=== PATIENT | male | born 1955 | race Caucasian/White ===

== ENCOUNTER → 2016-12-15 | Outpatient (CLI) | payer OTHER | END | disposition home or self-care (01) | LOC: LAB.O 10:23 | PROVIDERS: ATTEND Psychiatry & Neurology Neurology | DX: E11.9 Type 2 diabetes mellitus without complications (principal); M54.16 Radiculopathy, lumbar region; M32.10 Systemic lupus erythematosus, organ or system involvement unspecified; K50.90 Crohn's disease, unspecified, without complications; M15.0 Primary generalized (osteo)arthritis; F01.50 Vascular dementia, unspecified severity, without behavioral disturbance, psychotic disturbance, mood disturbance, and anxiety; G30.9 Alzheimer's disease, unspecified; F90.9 Attention-deficit hyperactivity disorder, unspecified type; M33.90 Dermatopolymyositis, unspecified, organ involvement unspecified; F81.9 Developmental disorder of scholastic skills, unspecified; R53.83 Other fatigue; R50.9 Fever, unspecified; M79.A9 Nontraumatic compartment syndrome of other sites; M54.81 Occipital neuralgia; M81.8 Other osteoporosis without current pathological fracture; M33.22 Polymyositis with myopathy; G61.81 Chronic inflammatory demyelinating polyneuritis; I73.00 Raynaud's syndrome without gangrene; M06.9 Rheumatoid arthritis, unspecified; D86.9 Sarcoidosis, unspecified; M31.6 Other giant cell arteritis; G45.9 Transient cerebral ischemic attack, unspecified ==

== ENCOUNTER 2017-03-22 08:51 | Emergency (ER) | payer OTHER ==
[2017-03-22] MEDS ORDERED: HYDROmorphone HCL INJ 2 MG/ML VIAL IM ONE ×2 (09:00→09:59)
--- NOTE | 2017-03-22 09:29 | RAD ---
EXAM DESCRIPTION: Chest,2 Views CLINICAL HISTORY: injury, pain COMPARISON: October 15, 2009 FINDINGS: Two-view chest x-ray shows cardiomediastinal silhouette and pulmonary vasculature to be within normal limits. Lateral projection is suboptimal secondary to regions inability to elevate arm. The lungs are normally aerated and clear. Probable nipple shadow in the right lower chest. Costophrenic angles are sharp. Remote appearing left-sided rib fractures are again seen. Disc degenerative changes of the spine are noted. IMPRESSION: No radiographic evidence of acute cardiopulmonary disease. Electronically signed by: Emory Howe MD 03/22/2017 9:28 AM CDT
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
--- NOTE | 2017-03-22 10:15 | RAD ---
EXAM DESCRIPTION: Radiographs of the right Shoulder: CLINICAL HISTORY: injury, pain COMPARISON: None TECHNIQUE: AP external rotation images. Lateral "Y" image. FINDINGS: No fracture right shoulder. Normal bone density. AC joint separation with distal clavicle 1.4 cm from the acromion. Glenohumeral joint unremarkable. No abnormal radiodense objects in the soft tissues or joint spaces. Adjacent right lung is unremarkable. IMPRESSION: Right AC joint separation with no evidence of fracture. Electronically signed by: William Clarke MD 03/22/2017 10:14 AM CDT
[2017-03-22 10:44] VITALS: TEMP 97.5
[2017-03-22 10:45] VITALS: BP 142/90; O2SAT 98
== END 2017-03-22 10:25 | disposition home or self-care (01) ==
LOC: ER 08:51
DX: S43.101A Unspecified dislocation of right acromioclavicular joint, initial encounter (principal); V13.4XXA Pedal cycle driver injured in collision with car, pick-up truck or van in traffic accident, initial encounter; Y92.410 Unspecified street and highway as the place of occurrence of the external cause
CPT/HCPCS: 71020; 73030; J1170

== ENCOUNTER → 2017-06-17 | Outpatient (CLI) | payer OTHER ==
--- NOTE | 2017-06-18 11:10 | MRI ---
MRI left shoulder without contrast INDICATION: Shoulder pain NOS TECHNIQUE: Noncontrast MR imaging left shoulder standard protocol FINDINGS: There is mild AC joint osteoarthrosis. There is tendinopathy and chronic low-grade interstitial partial tearing of the distal supraspinatus and infraspinatus. There is a diffuse chronic appearing glenoid labral tear nearly circumferential with para labral cysts along the inferior labrum extending into the axillary recess. No denervation muscle edema or atrophy noted. Maximal diameter of the para labral cyst is approximately 22 mm. This extends into the latissimus and teres major region at least 6 cm in length. Minimal grade 1 marbling of the rotator cuff muscle bellies symmetric. Multiple small subchondral cysts are noted in the posterior glenoid as well with minimal background glenohumeral osteoarthrosis. No detachment of the bicep labral anchor. There is tendinopathy and chronic low-grade interstitial partial tear subscapularis. No bicep rupture or dislocation. Slight posterior decentering of the humerus relative to the glenoid suggesting chronic mild posterior instability Remote healed mid to distal left clavicle fracture IMPRESSION: Nearly circumferential chronic glenoid labral tear left shoulder with large para labral cyst extending into the latissimus and teres major region Mild posterior decentering of the humerus suggesting chronic posterior instability Chronic tendinopathy and low-grade partial tears throughout the rotator cuff Remote healed distal clavicle fracture into the mid clavicle Mild glenohumeral osteoarthrosis Mild AC joint osteoarthrosis Mild subacromial and subdeltoid bursal edema Electronically signed by: Fredy Gomez MD 06/18/2017 11:09 AM GUN EXAMINER
== END | disposition home or self-care (01) ==
LOC: MRI 11:08
PROVIDERS: ATTEND Nurse Practitioner Acute Care
DX: M25.511 Pain in right shoulder (principal); M19.012 Primary osteoarthritis, left shoulder

== ENCOUNTER 2018-03-29 21:25 | Emergency (ER) | payer OTHER ==
[2018-03-29] MEDS ORDERED: SODIUM CHLORIDE 0.9% (FLUSH) 10 ML SYG IV PRN (21:33)
[2018-03-29] MEDS ORDERED: fentaNYL CITRATE INJ 50 MCG/ML AMP IV ONE (22:00)
--- NOTE | 2018-03-29 23:01 | US ---
EXAM DESCRIPTION: Abdomen,Complete CLINICAL HISTORY: 62 years Male, moderate to sever abd pain COMPARISON: None. TECHNIQUE: Sonographic imaging of the abdomen was performed. FINDINGS: Liver measures 17.4 cm longitudinally and appears homogenous in echogenicity. No obvious hepatic mass. Main portal vein is borderline prominent. Gallbladder appears unremarkable. No evidence of gallstones. No evidence of gallbladder wall thickening. Common bile duct appears normal measuring 1.3 mm in width. Pancreas is not well-visualized. Right kidney measures 10.5 cm x 4.3 cm x 5.4 cm and left kidney measures 9.3 cm x 7.6 cm x 6.2 cm. No evidence of hydronephrosis. No obvious renal stones. Spleen measures 9.1 cm longitudinally and appears unremarkable. Aorta appears normal in size. IMPRESSION: No acute findings. Electronically signed by: Dwayne Sandoval MD 03/29/2018 11:00 PM CDT
--- NOTE | 2018-03-29 23:16 | CT ---
PROCEDURE: Abdomen/Pelvis w/Contrast HISTORY: severe abd pain Indication: Same as above Comparison: None . Technique: CT of the abdomen and pelvis was done with intravenous contrast. Images were obtained from the lung base to the level of the pubic symphysis in axial plane, followed by orthogonal sagittal and coronal reconstruction. Oral contrast was not given for the study. The patient was injected with radiographic contrast intravenously, without any documented immediate adverse reactions. This exam was performed according to our departmental dose-optimization program, which includes automated exposure control, adjustment of the mA and/or KV according to the patient's size and/or use of iterative reconstruction technique. FINDINGS: Images through the lung bases do not show any focal infiltrates or pleural effusions. The liver, gallbladder, pancreas, spleen and the bilateral adrenal glands appear unremarkable. The bilateral kidneys enhance with contrast in a normal fashion. The urinary bladder is unremarkable . The bilateral ureters and the bilateral periureteral soft tissues and fat planes are unremarkable. The small bowel appears unremarkable, without any evidence of small bowel obstruction or bowel wall thickening. There is no CT evidence of acute appendicitis, pericecal inflammatory change or ileocecal mesenteric adenitis. The ileocecal junction appears unremarkable. There is no CT evidence of acute colonic diverticulitis or colitis or large bowel obstruction. There is large bowel diverticulosis The splenic and portal veins are of normal caliber, without any filling defects. There is no pathological lymphadenopathy in the retroperitoneum or in the pelvic region. There is no evidence of free fluid or free air in the abdomen or the pelvic region. There is no clinically significant abdominal aortic aneurysm. There is presence of small fat-containing bilateral inguinal hernias. The prostate is moderately enlarged The visualized lumbar spine shows degenerative change, most pronounced at L4/L5 level . The paravertebral soft tissues are unremarkable. The remainder of the pelvic structures are unremarkable. IMPRESSION: There are no acute findings in the abdomen or the pelvis. The prostate is moderately enlarged. There is large bowel diverticulosis, without acute diverticulitis. Location of Interpretation: T[facility]iology Electronically signed by: Arnoldo Barboza MD 03/29/2018 11:15 PM CDT Workstation: [id number]
--- NOTE | 2018-03-29 23:23 | ED.PDOC ---
History of Present Illness - General Chief Complaint: Abdominal Pain Stated Complaint: severe abd pain Time Seen by Provider: 03/29/18 21:59 Information Source: patient Exam Limitations: no limitations - History of Present Illness Initial Comments: Melquiades Osorio 62 y/o male stated had sudden onset of stabbing epigastric pain 3 hours ago which had been constant non radiating and getting worse.no N/V ,no dysuria,no hematemesis,no diarrhea,no hematuria.Had history of PUD in his 20s's and had esophageal stricture s/p esophageal dilatation.Had EGD/colonoscopy 2 years ago.Has history of HTN. Pain Radiation: epigastric Quality: stabbing Timing/Duration: 1-3 hours Improving Factors: nothing Worsening Factors: nothing Associated Symptoms: denies symptoms Review of Systems - Review of Systems Constitutional: States: no symptoms reported EENTM: States: no symptoms reported Respiratory: States: no symptoms reported Cardiology: States: no symptoms reported Gastrointestinal/Abdominal: States: see HPI Musculoskeletal: States: no symptoms reported Skin: States: no symptoms reported Neurological: States: no symptoms reported Past Medical History (General) - Patient Medical History Hx Seizures: No Hx Stroke: No Hx Dementia: No Hx Asthma: No Hx of COPD: No Hx Cardiac Disorders: No Hx Congestive Heart Failure: No Hx Pacemaker: No Hx Hypertension: Yes Hx Thyroid Disease: No Hx Diabetes: No Hx Gastroesophageal Reflux: No Hx Renal Disease: No Hx of HIV: No Hx MRSA: No Surgical History: other - l=right shoulder - Vaccination History Hx Tetanus, Diphtheria Vaccination: Yes Hx Influenza Vaccination: Yes Hx Pneumococcal Vaccination: No - Social History Hx Tobacco Use: No Hx Chewing Tobacco Use: No Hx Alcohol Use: Yes Feels Threatened In Home Enviroment: No Feels Threatened In a Relationship: No Hx Physical Abuse: No Hx Emotional Abuse: No Hx Suspected Abuse: No - Triage Comment ED Triage Comment: Pt spouse brought pt in stating he started having severe sharp pain to mid left upper quad. Pt report some nause, mainly due to pain. Pt had some light diarrhea yesterday, no other sx. Pt is bend over guarding abd. Family Medical History - Family History Father Family History: No Known Living Status: Unknown Physical Exam - Physical Exam General Appearance: No apparent distress, Other - in pain doubling up Eyes, Ears, Nose, Throat Exam: normal ENT inspection Respiratory: chest non-tender, lungs clear, normal breath sounds Cardiovascular/Chest: normal peripheral pulses, regular rate, rhythm, no murmur Peripheral Pulses: No deficit Gastrointestinal/Abdominal: normal bowel sounds, soft, no organomegaly, no pulsatile mass, tenderness - epigastrium no peritoneal signs Back Exam: no CVA tenderness, no vertebral tenderness Neurologic: alert, oriented x 3 Skin Exam: normal color, warm/dry Progress - Progress Progress: 03/29/18 23:25 Vital Signs - 8 hr 03/29/18 03/29/18 21:39 22:25 Temperature 98.5 F 98.5 F Pulse Rate [ 62 70 left] Respiratory 18 18 Rate Blood Pressure 156/108 111/87 [left] O2 Sat by Pulse 99 96 Oximetry - Results/Orders Results/Orders: 03/29/18 21:33 IV Care:Saline Lock per Protoc QSHIFT Sodium Chloride 0.9% (Flush) [Saline Flush Syringe] 10 ml IV PRN PRN Laboratory Results - last 24 hr 03/29/18 03/29/18 03/29/18 21:39 21:49 21:49 WBC 7.0 RBC 5.04 Hgb 16.2 Hct 49.0 MCV 97.2 H MCH 32.3 H MCHC 33.2 RDW 12.7 Plt Count 314 MPV 7.0 L Absolute Neuts (auto) 4.30 Absolute Lymphs (auto) 1.80 Absolute Monos (auto) 0.70 Absolute Eos (auto) 0.20 Absolute Basos (auto) 0.00 Neutrophils % 61.2 Lymphocytes % 25.4 Monocytes % 10.6 H Eosinophils % 2.3 Basophils % 0.5 Sodium 137 Potassium 4.1 Chloride 100 L Carbon Dioxide 30 Anion Gap 11.1 L BUN 14 Creatinine 1.08 BUN/Creatinine Ratio 13.0 Random Glucose 108 H Serum Osmolality 274.8 L Calcium 8.9 Total Bilirubin Direct Bilirubin Indirect Bilirubin AST ALT Alkaline Phosphatase Creatine Kinase CK-MB (CK-2) CK-MB (CK-2) % Troponin I Serum Total Protein Albumin Amylase Lipase Urine Color Yellow Urine Appearance Clear Urine pH 6.5 Ur Specific [place] <= 1.005 Urine Protein Negative Urine Glucose (UA) Negative Urine Ketones Negative Urine Blood Negative Urine Nitrite Negative Urine Bilirubin Negative Urine Urobilinogen 0.2 Ur Leukocyte Esterase Negative Urine RBC 0 Urine WBC 0 Ur Epithelial Cells 0 Urine Bacteria 0 03/29/18 03/29/18 21:49 Unknown WBC RBC Hgb Hct MCV MCH MCHC RDW Plt Count MPV Absolute Neuts (auto) Absolute Lymphs (auto) Absolute Monos (auto) Absolute Eos (auto) Absolute Basos (auto) Neutrophils % Lymphocytes % Monocytes % Eosinophils % Basophils % Sodium Potassium Chloride Carbon Dioxide Anion Gap BUN Creatinine BUN/Creatinine Ratio Random Glucose Serum Osmolality Calcium Total Bilirubin 0.5 Direct Bilirubin < 0.1 Indirect Bilirubin 0.4 AST 21 ALT 16 Alkaline Phosphatase 54 Creatine Kinase 167 CK-MB (CK-2) 1.5 CK-MB (CK-2) % Not Reportable Troponin I < 0.02 Serum Total Protein 7.0 Albumin 4.0 Amylase 47 Lipase 25 Urine Color Urine Appearance Urine pH Ur Specific [place] Urine Protein Urine Glucose (UA) Urine Ketones Urine Blood Urine Nitrite Urine Bilirubin Urine Urobilinogen Ur Leukocyte Esterase Urine RBC Urine WBC Ur Epithelial Cells Urine Bacteria - EKG/XRAY/CT XRAY: abd sono-no acute abnormalities CT Ordered: Yes - abd/p-no acute abnormalities Departure - Departure Clinical Impression: Abdominal pain Qualifiers: Abdominal location: epigastric Qualified Code(s): R10.13 - Epigastric pain Time of Disposition: 23:29 Disposition: Discharge to Home or Self Care Condition: Fair Departure Forms: ED Discharge - Pt. Copy, Patient Portal Self Enrollment Instructions: DI for Abdominal Pain-Adult Referrals: Parth Yo III, MD [Primary Care Provider] - 1-2 Weeks Home Medications: Ambulatory Orders Benicar 02/21/14 Pristiq 02/21/14 Tiazac 02/21/14 Acetaminophen W/ Codeine [Acetaminophen/Codeine Erin] 1 - 2 tab PO Q8H PRN #20 tab 03/22/17 Additional Instructions: Return to Emergency room as needed
[2018-03-29 23:26] VITALS: BP 144/84; TEMP 97.6; O2SAT 97
[2018-03-29] MEDS ORDERED: HYDROCOD/APAP 10/325 (ER DISP) # 3 tablets PO ONE (23:29)
[2018-03-29] MEDS ORDERED: PROMETHAZINE TAB (ER DISP) 25 MG TAB PO ONE (23:29)
== END 2018-03-29 23:47 | disposition home or self-care (01) ==
LOC: ER 21:25
DX: R10.13 Epigastric pain (principal); I10 Essential (primary) hypertension; Z87.11 Personal history of peptic ulcer disease
CPT/HCPCS: 36415; 74177; 76700; 80048; 80076; 81001; 82150; 82550; 82553; 83690; 84484; 85025; J3010; Q0169

== ENCOUNTER 2020-05-29 07:35 | Observation (INO) | payer BC ==
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
[2020-05-29] MEDS ORDERED: ONDANSETRON INJ 4 MG/2 ML VIAL IV PRN (07:44)
[2020-05-29] MEDS ORDERED: SODIUM CHLORIDE 0.9% (FLUSH) 10 ML SYG IV PRN (07:44)
[2020-05-29] MEDS ORDERED: SODIUM CHLORIDE 0.9% 1000ML 1,000 ML ONE (07:47)
[2020-05-29] MEDS ORDERED: IV SET AND CAP CHANGE INJ INJ SCH (08:00)
[2020-05-29] MEDS ORDERED: SODIUM CHLORIDE 0.9% 1000ML 1,000 ML IVS ONE ×3 (09:29→22:05)
[2020-05-29] MEDS: SODIUM CHLORIDE 0.9% (FLUSH) 10 ML SYG IV SCH ×2 (10:08→20:16)
[2020-05-29] MEDS ORDERED: levoFLOXacin 500MG IV 500 MG in PREMIX BAG 1 BAG IVPB SCH (10:30)
[2020-05-29] MEDS ORDERED: SODIUM CHLORIDE 0.45% 1000ML 1,000 ML IVS ONE (11:30)
[2020-05-29] MEDS: BIFIDOBACTERIUM INFANTIS 4 MG CAP PO SCH ×2 (11:45→20:16)
--- NOTE | 2020-05-29 12:27 | CT ---
EXAM: Abdomen/Pelvis w/Contrast (accession [id number]), CTA Chest (accession [id number]) INDICATION: sepsis of unknown etiology . Elevated d-dimer, high fever. COMPARISON: CT abdomen pelvis with contrast 03/29/2018 TECHNIQUE: CT angiogram of the chest was performed according to pulmonary embolism protocol following the administration of IV contrast. CT of the abdomen and pelvis was subsequently performed. Multiple axial images and multiplanar reconstructions were generated. Coronal and sagittal MIPS were also generated and reviewed. This exam was performed according to our departmental dose-optimization program, which includes automated exposure control, adjustment of the mA and/or kV according to patient size and/or use of iterative reconstruction technique. CHEST FINDINGS: Heart: Heart size is within normal limits. No pericardial effusion. Coronary artery atherosclerosis. Great vessels: Evaluation for pulmonary embolism is significantly limited due to suboptimal contrast bolus timing as well as areas of streak and motion artifact. No central or saddle pulmonary embolism is identified within these limitations. Evaluation of the segmental and subsegmental pulmonary arterial branches is significantly limited, but no definite filling defects are identified. The caliber of the main pulmonary artery is mildly enlarged at 3.5 cm. The caliber of the aorta is within normal limits. Minimal atherosclerotic plaque in the thoracic aorta. Mediastinum: Scattered small mediastinal lymph nodes are noted, likely reactive, for reference, a left hilar node measures up to 1.2 cm (axial series 3 image 44). No mediastinal masses. Lungs: Scattered subsegmental atelectasis in the lungs. No confluent pulmonary infiltrate. Probable 5 mm solid pulmonary nodule abutting the azygos vein, versus unusual outpouching of the azygos vein (axial series 9 image 41). Incidental 5 mm subpleural pulmonary nodule in the anterior right upper lobe (axial series 9 image 40 and sagittal series 601 image 90). Incidental 4 mm solid pulmonary nodule in the right upper lobe (axial series 9 image 30). Possible 6 mm pulmonary nodule in the right posterior costophrenic sulcus, versus atelectasis (axial series 9 image 85). Incidental 3 mm subpleural pulmonary nodule in the posterior left upper lobe (axial series 9 image 25). No pulmonary infiltrates suggestive of pneumonia are identified. No pleural effusion. No pneumothorax. Esophagus: Small hiatal hernia. A prominent 1.1 cm paraesophageal node is noted distally (axial series 3 image 85). Otherwise unremarkable appearance of the esophagus. Thyroid: Unremarkable appearance of the visualized portions of the thyroid gland. Bones: No acute fracture is identified. Multiple remote bilateral rib deformities are noted. No destructive osseous lesion. Degenerative changes in the spine. Body wall: Gynecomastia is noted. A few foci of air are noted within the venous structures in the left upper chest, presumably related to IV injection. ABDOMEN PELVIS FINDINGS: Liver: Unremarkable appearance of the liver. Gallbladder: Unremarkable appearance of the gallbladder. Pancreas: Unremarkable appearance of the pancreas. Spleen: Unremarkable appearance of the spleen. Adrenal glands: Unremarkable appearance of the adrenal glands. Kidneys, ureters, bladder: No striated nephrograms are identified on this delayed phase scan. A 1.3 cm hypodense lesion in the lower pole of the right kidney is not completely circumscribed, and may be at least mildly complex, although not well evaluated on this study (axial series 4 image 45-46). Bilateral nonspecific perinephric stranding is noted, of doubtful clinical significance. Excreted contrast is present within the urinary collecting systems proximally. Unremarkable appearance of the visualized portions of the ureters. Unremarkable appearance of the urinary bladder. Stomach and bowel: Small hiatal hernia. No dilated loops of small bowel. Large stool burden. Colonic diverticulosis without evidence for acute diverticulitis. The appendix is identified and appears normal. Prostate: Prominent prostate gland. Peritoneum: No free fluid. No pneumoperitoneum. Lymph nodes: No lymphadenopathy. Vasculature: Moderate atherosclerosis. Bones: No acute fracture. Degenerative changes in the spine and hips. Scattered bone islands are noted. No focal destructive osseous lesion is identified. Body wall: A 3.7 x 2.0 x 4.4 cm circumscribed low density lesion is identified in the soft tissues of the proximal right thigh anterior to the right femur at the level of the greater trochanter (axial series 4 image 95 and coronal series 605 image 79). There is no significant associated inflammatory fat stranding. This is lateral to the iliopsoas, although not directly associated with the labrum. IMPRESSION: 1. Evaluation for pulmonary embolism is significantly limited due to multiple factors discussed above. No central or saddle pulmonary embolism is identified. 2. The main pulmonary artery is enlarged up to 3.5 cm, a finding which can be seen in pulmonary hypertension. Correlate clinically. 3. Scattered small mediastinal lymph nodes are noted, as well as a prominent paraesophageal node. These are indeterminate, but favored reactive. 4. Multiple incidental pulmonary nodules, the largest of which measures up to 6 mm. Recommend a non-contrast Chest CT at 3-6 months, then consider another non-contrast Chest CT at 18-24 months. If patient is low risk for malignancy, non-contrast Chest CT at 18-24 months is optional.(Radiology. 2017 [place]; 284(1):228-243). 5. Small hiatal hernia. 6. 1.3 cm hypodense lesion in the lower pole of the right kidney appears to be minimally complex, but is not well evaluated on this examination. Further evaluation could be performed with nonemergent follow-up ultrasound and/or renal mass protocol MRI or CT. 7. Large stool burden. 8. Colonic diverticulosis without evidence for acute diverticulitis. 9. A 4.4 cm circumscribed low density lesion in the soft tissues of the anterior proximal right thigh is most likely cystic, probably associated with the right hip joint. There is no associated inflammatory fat stranding and this is felt unlikely to represent infection, unless there are focal clinical signs or symptoms for infection. Further evaluation could be performed with ultrasound or nonemergent follow-up MRI of the hip if indicated. 10. Additional findings as described above. Electronically signed by: Arelis Brothers MD 05/29/2020 12:25 PM [employer]CH[employer] SUPER[employer]OR
--- NOTE | 2020-05-29 12:30 | US ---
EXAM DESCRIPTION: Abdomen,Complete CLINICAL HISTORY: right upper quadrant tenderness COMPARISON: Previous CT abdomen and pelvis May 29, 2020, previous abdominal sonogram March 29, 2018 TECHNIQUE: Complete abdominal ultrasound FINDINGS: Visualized portions of the pancreas are unremarkable. No peripancreatic fluid. Bowel gas obscures some areas. Normal caliber of the aorta. Normal appearance of the inferior vena cava. Liver parenchyma is homogeneous in texture with normal echogenicity. No liver mass or intrahepatic bile duct dilatation. No liver surface irregularity. Normal appearance of hepatic veins and portal vein. Gallbladder appears normal with no intraluminal stones. No gallbladder wall thickening. Common bile duct is normal in caliber measuring 4.0 mm. The right kidney measures 11.9 cm in length. Increased renal cortical echogenicity. Diffuse renal cortical thinning. Correlate with renal function tests. No right renal mass or shadowing stone. Small cortical cyst measures 1.3 cm. There is no hydronephrosis. Spleen is normal in size. No focal splenic lesion. Small accessory splenule. The left kidney measures 9.5 cm in length. Increased renal cortical echogenicity. The renal cortical thickness appears normal. No left renal mass, shadowing stone or cyst. There is no hydronephrosis. IMPRESSION: Hyperechoic kidneys without hydronephrosis. Normal sonographic appearance of the gallbladder and common bile duct. Electronically signed by: Cedrick Cabezas MD 05/29/2020 12:29 PM DEVELOPING MACHINE OPERATOR
[2020-05-29] MEDS ORDERED: ACETAMINOPHEN 325 MG TAB PO PRN (13:06)
[2020-05-29] MEDS ORDERED: cefTRIAXone SODIUM 1 GM in SODIUM CHL 0.9% 50ML MIN-BAG+ 50 ML IVPB ONE (15:00)
[2020-05-29] MEDS ORDERED: traZODone HCL 50 MG TAB PO PRN (16:39)
[2020-05-29] MEDS: traMADol HCL 50 MG TAB PO PRN (17:53)
[2020-05-29] MEDS ORDERED: cefTRIAXone SODIUM 1 GM VIAL ONE (17:58)
[2020-05-29] MEDS ORDERED: ZOLPIDEM TARTRATE 10 MG TAB ONE (19:30)
[2020-05-29] MEDS ORDERED: diltiaZEM HCL CD 180 MG CAP ONE (19:31)
[2020-05-29] MEDS ORDERED: PREGABALIN 100 MG CAP ONE (19:31)
[2020-05-29] MEDS ORDERED: CETIRIZINE HCL 10 MG TAB PO ONE (19:31)
[2020-05-29] MEDS ORDERED: PREGABALIN 100 MG CAP PO SCH (21:00)
[2020-05-29] MEDS ORDERED: NON-FORMULARY MEDICATION 1 EA MIS (Desvenlafaxine Succinate [Pristiq] 50 MG) PO SCH (21:00)
[2020-05-29] MEDS ORDERED: ZOLPIDEM TARTRATE 10 MG TAB PO SCH (21:00)
[2020-05-29] MEDS ORDERED: CETIRIZINE HCL 10 MG TAB PO SCH (21:00)
[2020-05-29] MEDS ORDERED: diltiaZEM HCL CD 180 MG CAP PO SCH (21:00)
[2020-05-29] MEDS ORDERED: NON-FORMULARY MEDICATION 1 EA MIS (Olmesartan Medoxomil [Benicar] 40 MG) PO SCH (21:00)
[2020-05-30] MEDS ORDERED: levoFLOXacin 500MG IV 100 ML IVPB ONE (05:33)
[2020-05-30] MEDS ORDERED: cefTRIAXone SODIUM 1 GM VIAL ONE (05:34)
[2020-05-30] MEDS ORDERED: SODIUM CHL 0.9% 50ML MIN-BAG+ 50 ML IVPB ONE (05:34)
--- NOTE | 2020-05-30 07:20 | RAD ---
CHEST, TWO VIEW, XR CLINICAL HISTORY: Sepsis. COMPARISON: CTA chest 05/29/2020. TECHNIQUE: Frontal and lateral Chest. FINDINGS: Heart is normal in size. Normal cardiomediastinal contours. Normal pulmonary vascularity. Lungs appear clear. Pleural spaces are clear. There is an old fracture of the left mid clavicle. Old fracture posterior left rib 4. IMPRESSION: 1. No acute chest disease. Electronically signed by: Clara Guerra DO 05/30/2020 7:19 AM [facility]
[2020-05-30] MEDS ORDERED: levoFLOXacin 500MG IV 500 MG in PREMIX BAG 1 BAG IVPB SCH ×2 (08:00→09:00)
[2020-05-30] MEDS: traMADol HCL 50 MG TAB PO PRN (08:23)
[2020-05-30] MEDS: BIFIDOBACTERIUM INFANTIS 4 MG CAP PO SCH (08:34)
[2020-05-30 08:43] VITALS: BP 134/75; TEMP 99.4; O2SAT 94
[2020-05-30] MEDS: SODIUM CHLORIDE 0.9% (FLUSH) 10 ML SYG IV SCH (08:44)
[2020-05-30] MEDS ORDERED: cefTRIAXone SODIUM 1 GM in SODIUM CHL 0.9% 50ML MIN-BAG+ 50 ML IVPB SCH (09:00)
[2020-05-30] MEDS ORDERED: PREGABALIN 100 MG CAP PO PRN (09:00)
== END 2020-05-30 11:50 | disposition home or self-care (01) ==
LOC: MS 07:35
PROVIDERS: ADMIT Nurse Practitioner Acute Care; ATTEND Nurse Practitioner Acute Care
DX: R50.9 Fever, unspecified (principal); J02.0 Streptococcal pharyngitis; R59.1 Generalized enlarged lymph nodes; I10 Essential (primary) hypertension; F32.9 Major depressive disorder, single episode, unspecified; J30.2 Other seasonal allergic rhinitis; S70.01XA Contusion of right hip, initial encounter; E86.0 Dehydration; E83.41 Hypermagnesemia; R53.82 Chronic fatigue, unspecified; F17.220 Nicotine dependence, chewing tobacco, uncomplicated; R91.8 Other nonspecific abnormal finding of lung field; K44.9 Diaphragmatic hernia without obstruction or gangrene; K57.30 Diverticulosis of large intestine without perforation or abscess without bleeding; Z20.828 Contact with and (suspected) exposure to other viral communicable diseases; Z79.899 Other long term (current) drug therapy; Z12.5 Encounter for screening for malignant neoplasm of prostate; W11.XXXA Fall on and from ladder, initial encounter; Y92.009 Unspecified place in unspecified non-institutional (private) residence as the place of occurrence of the external cause
CPT/HCPCS: 96361 ×2; 96365; 96375; 96376; J0696 ×2; J1956 ×2; J7799; J7030 ×2; A4216; J7050; 85379 ×2; 80053 ×2; 87086; 87880; 36415 ×9; 81001; G0103; 86140; 85025 ×2; 82550; 87040 ×2; 83735 ×2; 83605; 71046; 71275; 74177; 76700; 94760; 93306; G0378; 87581; 87486; 87633; 87635